=== PATIENT | male | born 1965 | race Hispanic/Latino ===

== ENCOUNTER 2020-12-10 07:43 | Day surgery (SDC) | payer OTHER ==
[2020-12-06 09:50] VITALS: BP 116/75
[2020-12-06 10:10] LABS: BASOPHILS % (AUTO) 0.9 % (0.0-5.0); EOSINOPHILS % (AUTO) 2.8 % (0.0-8.0); HEMATOCRIT 46.9 % (42-54); LYMPHOCYTES % (AUTO) 28.5 % (21.0-51.0); MEAN CORPUSCULAR HEMOGLOBIN 29.8 pg (27.0-33.0); MEAN CORPUSCULAR HGB CONC 34.5 g/dL (32.0-36.0); MEAN CORPUSCULAR VOLUME 86.4 fL (79-99); MONOCYTES % (AUTO) 9.9 % (3.0-13.0); NEUTROPHILS % (AUTO) 57.6 % (40.0-77.0); PLATELET COUNT (AUTO) 178 K/uL (130-400); RED BLOOD CELL COUNT(AUTO) 5.43 MIL/uL (4.50-6.20); RED CELL DISTRIBUTION WIDTH 12.7 % (11.0-15.5); WHITE BLOOD COUNT (AUTO) 6.7 K/uL (4.8-10.8)
[2020-12-06 10:17] LABS: CREATININE 1.2 mg/dL (0.5-1.5); POTASSIUM 4.5 mmol/L (3.5-5.1)
[~2020-12-10] VITALS: Ht 182.9 cm; Wt 93.7 kg
[2020-12-10] VITALS (17 sets, daily range): BP systolic 108–131; BP diastolic 61–82
[~2020-12-10 07:43] MED LIST: ACET1TAB25 PO; ASPI-1005 PO; BUDE10.2 IH; CYAN50009 PO; IBUP-2077 PO; INSLAN SQ; LISI-809 PO; METH-811 PO; SILD100T PO
[2020-12-10] MEDS ORDERED: NACL 0.9% 1000ML 1,000 ML IV ONE (08:24)
[2020-12-10] MEDS ORDERED: CEFAZOLIN SODIUM 1 GM VIAL ONE ×2 (09:13→09:44)
[2020-12-10] MEDS ORDERED: ROCURONIUM 10MG/1ML SYR 10 MG/ML ML ONE (09:27)
[2020-12-10] MEDS ORDERED: LIDOCAINE PF 100MG/5ML (2%) SYRINGE 5ML ONE (09:27)
[2020-12-10] MEDS ORDERED: PROPOFOL 10 MG/ML 20ML VIAL IV ONE (09:27)
[2020-12-10] MEDS ORDERED: SUCCINYLCHOLINE CHLORIDE 20 MG/ML 10 ML VIAL ONE (09:27)
[2020-12-10] MEDS ORDERED: FENTANYL CITRATE PF 50 MCG/1 ML 2ML VIAL ONE (09:28)
[2020-12-10] MEDS ORDERED: ROPIVACAINE 0.5% 5MG/ML 30ML IJ ONE (09:53)
[2020-12-10] MEDS ORDERED: GLYCOPYRROLATE 1 MG/5 ML SYRINGE ONE (11:05)
[2020-12-10] MEDS ORDERED: KETOROLAC 30MG VIAL (30MG/ML) ONE (11:05)
[2020-12-10] MEDS ORDERED: NEOSTIGMINE 5MG/5ML SYR IV ONE (11:05)
[2020-12-10] MEDS ORDERED: IBUP-2077 PO (11:23)
[2020-12-10] MEDS ORDERED: ACET1TAB25 PO (11:23)
[2020-12-10] MEDS ORDERED: CEPH500B PO (11:23)
[2020-12-10] MEDS ORDERED: MEPERIDINE-PF 25 MG/ML SYG ONE (11:49)
== END 2020-12-10 12:50 | disposition home or self-care (01) ==
LOC: DAH 07:43
PROVIDERS: ATTEND Orthopaedic Surgery
DX: S83.512A Sprain of anterior cruciate ligament of left knee, initial encounter (principal); T84.89XA Other specified complication of internal orthopedic prosthetic devices, implants and grafts, initial encounter; Z20.822 Contact with and (suspected) exposure to COVID-19; M94.262 Chondromalacia, left knee; E11.9 Type 2 diabetes mellitus without complications; F17.290 Nicotine dependence, other tobacco product, uncomplicated; G89.29 Other chronic pain; Z79.899 Other long term (current) drug therapy; Z98.1 Arthrodesis status; Z79.82 Long term (current) use of aspirin; Z98.890 Other specified postprocedural states; Z79.4 Long term (current) use of insulin; Z72.89 Other problems related to lifestyle; X58.XXXA Exposure to other specified factors, initial encounter; Y93.89 Activity, other specified; Y92.89 Other specified places as the place of occurrence of the external cause; Y83.8 Other surgical procedures as the cause of abnormal reaction of the patient, or of later complication, without mention of misadventure at the time of the procedure
CPT/HCPCS: 29877; 36415; 64415; 76942; 80048; 82948 ×2; 85025; 87635; A4215; A4221; A4222; A4223; A4649 ×4; A4930; A6223; C1776; C9803; J0330; J0690 ×2; J1885; J2001; J2175; J2704; J2710; J2795; J3010; J3490; J7030 ×3

== ENCOUNTER 2021-03-25 08:00 | Inpatient (IN) | payer OTHER ==
[~2021-03-25] VITALS: Ht 182.9 cm; Wt 93.0 kg
[2021-03-25 09:38] LABS: BASOPHILS % (AUTO) 0.9 % (0.0-5.0); EOSINOPHILS % (AUTO) 3.3 % (0.0-8.0); LYMPHOCYTES % (AUTO) 23.4 % (21.0-51.0); MEAN CORPUSCULAR HEMOGLOBIN 30.2 pg (27.0-33.0); MEAN CORPUSCULAR HGB CONC 35.2 g/dL (32.0-36.0); MEAN CORPUSCULAR VOLUME 85.8 fL (79-99); MONOCYTES % (AUTO) 12.4 % (3.0-13.0); NEUTROPHILS % (AUTO) 59.9 % (40.0-77.0); PLATELET COUNT (AUTO) 175 K/uL (130-400); RED BLOOD CELL COUNT(AUTO) 5.13 MIL/uL (4.50-6.20); RED CELL DISTRIBUTION WIDTH 12.6 % (11.0-15.5); WHITE BLOOD COUNT (AUTO) 6.8 K/uL (4.8-10.8)
[2021-03-25 09:42] LABS: APPEARANCE,URINE Clear (CLEAR); BILIRUBIN,URINE Negative (NEGATIVE); COLOR,URINE Yellow (YELLOW); GLUCOSE, URINE (UA) >=1000 mg/dL (NEGATIVE); KETONES,URINE Negative (NEGATIVE); LEUKOCYTE ESTERASE ,URINE Negative (NEGATIVE); NITRATE,URINE Negative (NEGATIVE); OCCULT BLOOD,URINE Negative (NEGATIVE); PH,URINE 5.5 (5.0-8.0); PROTEIN,URINE Negative (NEGATIVE)
[2021-03-25 09:54] LABS: BACTERIA,URINE Rare /HPF (None Seen); CREATININE 1.3 mg/dL (0.5-1.5); POTASSIUM 4.3 mmol/L (3.5-5.1); RBC,URINE 0-1 /HPF (0-1); SQUAMOUS EPITHELIAL CELL,UR Rare /HPF (0-2); WBC,URINE 0-1 /HPF (0-1)
[2021-03-26 14:34] VITALS: BP 118/76
[2021-03-26] MEDS ORDERED: INSU100C6 SQ (15:06)
[2021-03-26] MEDS ORDERED: INSU100V12 SQ (15:06)
[2021-03-27] VITALS (29 sets, daily range): BP systolic 126–163; BP diastolic 76–93
[2021-03-27] MEDS ORDERED: CEFAZOLIN SODIUM 1 GM VIAL IVP ONE (08:00)
[2021-03-27] MEDS ORDERED: 0.9%NACL 1000ML 1,000 ML IV ONE (09:27)
[2021-03-27] MEDS ORDERED: CEFAZOLIN SODIUM 1 GM VIAL ONE ×2 (09:27→14:42)
[2021-03-27] MEDS ORDERED: INSU100I3 SQ (09:44)
[2021-03-27] MEDS ORDERED: DEXTROSE 50%-WATER 50 ML DISP.SYRIN IV SCH (11:30)
[2021-03-27] MEDS ORDERED: MIDAZOLAM HCL 1 MG/ML 2ML VIAL ONE (14:00)
[2021-03-27] MEDS ORDERED: ROPIVACAINE 0.5% 5MG/ML 30ML IJ ONE (14:06)
[2021-03-27] MEDS ORDERED: KETAMINE 50MG/ML SYRINGE 50 MG/ML DISP.SYRIN IV ONE (14:06)
[2021-03-27] MEDS ORDERED: MAGNESIUM SULFATE 1 GM/2 ML VIAL ONE (14:06)
[2021-03-27] MEDS ORDERED: ONDANSETRON 4MG INJ ONE (14:07)
[2021-03-27] MEDS ORDERED: PROPOFOL 10 MG/ML 20ML VIAL IV ONE (14:07)
[2021-03-27] MEDS ORDERED: ROCURONIUM 10MG/1ML SYR 10 MG/ML ML ONE (14:07)
[2021-03-27] MEDS ORDERED: DEXAMETHASONE SOD PHOSPHATE 10MG/ML 1ML VIAL ONE (14:10)
[2021-03-27] MEDS ORDERED: TRANEXAMIC ACID 1000MG/10ML ONE ×2 (14:42→16:46)
[2021-03-27] MEDS ORDERED: FENTANYL CITRATE PF 50 MCG/1 ML 2ML VIAL ONE (14:53)
[2021-03-27] MEDS ORDERED: TRAMADOL HCL 50 MG TABLET PO PRN (16:30)
[2021-03-27] MEDS ORDERED: LIDOCAINE HCL-MPF 1% 2ML VIAL IV PRN (16:30)
[2021-03-27] MEDS ORDERED: POTASSIUM CHLORIDE 10% ELIXIR 20 MEQ/15 ML UDCUP PO PRN (16:30)
[2021-03-27] MEDS: INSULIN HUMULIN R 100 UNIT/ML 3ML SQ SCH ×2 (16:30→21:00)
[2021-03-27] MEDS ORDERED: POTASSIUM CHLORIDE 20MEQ/100ML 100 ML IV PRN (16:30)
[2021-03-27] MEDS ORDERED: DiphenhydrAMINE HCL 50 MG/ML VIAL IVP PRN (16:30)
[2021-03-27] MEDS ORDERED: ONDANSETRON 4MG INJ IVP PRN (16:30)
[2021-03-27] MEDS ORDERED: FERROUS FUMARATE 324 MG TABLET PO PRN (16:30)
[2021-03-27] MEDS ORDERED: CALCIUM CARB 500MG PO PRN (16:30)
[2021-03-27] MEDS ORDERED: TEMAZEPAM 15 MG CAPSULE PO PRN (16:30)
[2021-03-27] MEDS ORDERED: KCL 20 MEQ ERTAB PO PRN (16:30)
[2021-03-27] MEDS ORDERED: NEOSTIGMINE 5MG/5ML SYR IV ONE (16:58)
[2021-03-27] MEDS ORDERED: GLYCOPYRROLATE 1 MG/5 ML SYRINGE ONE (16:58)
[2021-03-27] MEDS ORDERED: MEPERIDINE-PF 25 MG/ML SYG ONE ×2 (17:37→18:01)
[2021-03-27] MEDS ORDERED: HYDROMORPHONE 1 MG INJ ONE (17:48)
[2021-03-27] MEDS: INSULIN GLARGINE 100 UNITS/ML 10 ML VIAL SQ SCH (21:00)
[2021-03-27] MEDS: ASPIRIN 81 MG EC TAB PO SCH (21:03)
[2021-03-27] MEDS: PREGABALIN 25 MG CAP PO SCH (21:03)
[2021-03-27] MEDS: CELECOXIB 200 MG CAP PO SCH (21:03)
[2021-03-27] MEDS: FAMOTIDINE 20MG TAB PO SCH (21:06)
[2021-03-27] MEDS: ACETAMINOPHEN 500 MG TABLET PO SCH (21:06)
[2021-03-27] MEDS: CEFAZOLIN SODIUM 1 GM VIAL IVP SCH (21:10)
[2021-03-27] MEDS: KETOROLAC 15MG/ML VIAL (15MG/ML) IV PRN (21:11)
[2021-03-27] MEDS: 0.9%NACL 1000ML 1,000 ML IV SCH (21:11)
[2021-03-27] MEDS: OXYCODONE HCL 5 MG TAB PO PRN (23:44)
[2021-03-28] MEDS: ACETAMINOPHEN 500 MG TABLET PO SCH ×3 (00:30→19:48)
[2021-03-28] MEDS: 0.9%NACL 1000ML 1,000 ML IV SCH ×2 (01:43→12:30)
[2021-03-28] MEDS: CEFAZOLIN SODIUM 1 GM VIAL IVP SCH (03:45)
[2021-03-28] MEDS: KETOROLAC 15MG/ML VIAL (15MG/ML) IV PRN ×2 (03:48→17:15)
[2021-03-28 04:00] VITALS: BP 121/76
[2021-03-28 04:51] LABS: HEMATOCRIT 36.4 % (42-54); MEAN CORPUSCULAR HEMOGLOBIN 29.8 pg (27.0-33.0); MEAN CORPUSCULAR HGB CONC 35.2 g/dL (32.0-36.0); MEAN CORPUSCULAR VOLUME 84.8 fL (79-99); RED BLOOD CELL COUNT(AUTO) 4.29 MIL/uL (4.50-6.20); RED CELL DISTRIBUTION WIDTH 12.7 % (11.0-15.5); WHITE BLOOD COUNT (AUTO) 8.7 K/uL (4.8-10.8)
[2021-03-28 05:05] LABS: CREATININE 1.1 mg/dL (0.5-1.5); POTASSIUM 4.9 mmol/L (3.5-5.1)
[2021-03-28] MEDS: INSULIN HUMULIN R 100 UNIT/ML 3ML SQ SCH ×4 (06:58→20:51)
[2021-03-28] MEDS: OXYCODONE HCL 5 MG TAB PO PRN ×4 (07:02→20:52)
[2021-03-28 07:30] VITALS: BP 122/81
[2021-03-28] MEDS: TAMSULOSIN HCL 0.4 MG CAP.ER.24H PO SCH (09:00)
[2021-03-28] MEDS: CELECOXIB 200 MG CAP PO SCH ×2 (09:26→19:47)
[2021-03-28] MEDS: ASPIRIN 81 MG EC TAB PO SCH ×2 (09:27→19:48)
[2021-03-28] MEDS: PREGABALIN 25 MG CAP PO SCH ×2 (09:27→19:47)
[2021-03-28] MEDS: FAMOTIDINE 20MG TAB PO SCH ×2 (09:28→19:48)
[2021-03-28] MEDS: POLYETHYLENE GLYCOL 3350 17 GM POWD.PACK PO SCH (09:31)
[2021-03-28] MEDS: INSULIN GLARGINE 100 UNITS/ML 10 ML VIAL SQ SCH ×2 (09:56→19:49)
[2021-03-28 11:00] VITALS: BP 110/68
[2021-03-28 16:00] VITALS: BP 128/75
[2021-03-28 19:48] VITALS: BP 128/73
[2021-03-29] VITALS (7 sets, daily range): BP systolic 114–146; BP diastolic 61–88
[2021-03-29] MEDS: ACETAMINOPHEN 500 MG TABLET PO SCH ×3 (04:07→19:34)
[2021-03-29] MEDS: OXYCODONE HCL 5 MG TAB PO PRN ×4 (04:08→19:34)
[2021-03-29] MEDS: INSULIN HUMULIN R 100 UNIT/ML 3ML SQ SCH ×4 (05:36→20:21)
[2021-03-29] MEDS: KETOROLAC 15MG/ML VIAL (15MG/ML) IV PRN ×2 (06:30→21:58)
[2021-03-29] MEDS: FAMOTIDINE 20MG TAB PO SCH ×2 (08:10→19:34)
[2021-03-29] MEDS: ASPIRIN 81 MG EC TAB PO SCH ×2 (08:11→19:35)
[2021-03-29] MEDS: CELECOXIB 200 MG CAP PO SCH ×2 (08:11→19:35)
[2021-03-29] MEDS: PREGABALIN 25 MG CAP PO SCH ×2 (08:11→19:35)
[2021-03-29] MEDS: POLYETHYLENE GLYCOL 3350 17 GM POWD.PACK PO SCH (08:11)
[2021-03-29] MEDS: INSULIN GLARGINE 100 UNITS/ML 10 ML VIAL SQ SCH ×2 (08:24→20:25)
[2021-03-29] MEDS: TAMSULOSIN HCL 0.4 MG CAP.ER.24H PO SCH (08:24)
[2021-03-29] MEDS ORDERED: OXYC5 PO (15:22)
[2021-03-29] MEDS ORDERED: AEC81 PO (15:22)
[2021-03-30] MEDS: OXYCODONE HCL 5 MG TAB PO PRN ×2 (00:45→05:27)
[2021-03-30 04:07] VITALS: BP 127/69
[2021-03-30] MEDS: ACETAMINOPHEN 500 MG TABLET PO SCH (05:27)
[2021-03-30] MEDS: INSULIN HUMULIN R 100 UNIT/ML 3ML SQ SCH (06:01)
[2021-03-30 07:32] VITALS: BP 119/71
[2021-03-30] MEDS: ASPIRIN 81 MG EC TAB PO SCH (08:25)
[2021-03-30] MEDS: TAMSULOSIN HCL 0.4 MG CAP.ER.24H PO SCH (08:26)
[2021-03-30] MEDS: CELECOXIB 200 MG CAP PO SCH (08:26)
[2021-03-30] MEDS: INSULIN GLARGINE 100 UNITS/ML 10 ML VIAL SQ SCH (08:26)
[2021-03-30] MEDS: POLYETHYLENE GLYCOL 3350 17 GM POWD.PACK PO SCH (08:26)
[2021-03-30] MEDS: PREGABALIN 25 MG CAP PO SCH (08:26)
[2021-03-30] MEDS: FAMOTIDINE 20MG TAB PO SCH (08:26)
[2021-03-30] MEDS ORDERED: BISACODYL 10 MG SUPP.RECT RC PRN (16:30)
== END 2021-03-30 09:20 | disposition home health service (06) | DRG 470 ==
LOC: EDSTATUS 08:00 → DAHIP 03-27 08:19 → 3CH 03-27 19:51
PROVIDERS: ADMIT Orthopaedic Surgery; ATTEND Orthopaedic Surgery
PROC: 3E0T33Z Introduction of Anti-inflammatory into Peripheral Nerves and Plexi, Percutaneous Approach (ICD-10-PCS; 2021-03-27)
PROC: 0SRD0J9 Replacement of Left Knee Joint with Synthetic Substitute, Cemented, Open Approach (ICD-10-PCS; principal; 2021-03-27 14:59)
PROC: 3E0T3BZ Introduction of Anesthetic Agent into Peripheral Nerves and Plexi, Percutaneous Approach (ICD-10-PCS; 2021-03-27 14:59)
DX: M17.32 Unilateral post-traumatic osteoarthritis, left knee (principal); Z20.822 Contact with and (suspected) exposure to COVID-19; G89.29 Other chronic pain; E11.9 Type 2 diabetes mellitus without complications; D64.9 Anemia, unspecified; Z87.81 Personal history of (healed) traumatic fracture; Z72.0 Tobacco use
CPT/HCPCS: 36415; 80048; 81001; 82947; 82948; 85025; 85027; 87088; 87635; 87641; 97039; G0378; J0690; J1100; J1170; J1815; J1885; J2175; J2250; J2405; J2704; J2710; J2795; J3010; J3475; J3490; J7030

== ENCOUNTER → 2022-12-31 | Outpatient (CLI) | payer OTHER ==
[~2022-12-31] MED LIST changes: -ACET1TAB25 PO; +AEC81 PO; -ASPI-1005 PO; -BUDE10.2 IH; -CYAN50009 PO; -IBUP-2077 PO; -INSLAN SQ; +INSU100I3 SQ; +INSU100V12 SQ; -LISI-809 PO; -METH-811 PO; +OXYC5 PO; -SILD100T PO
== END | disposition home or self-care (01) ==
LOC: RAH 12:19
PROVIDERS: ATTEND Student in an Organized Health Care Education/Training Program
DX: M25.562 Pain in left knee (principal); T84.84XA Pain due to internal orthopedic prosthetic devices, implants and grafts, initial encounter; M79.89 Other specified soft tissue disorders; M25.462 Effusion, left knee; Y92.89 Other specified places as the place of occurrence of the external cause
CPT/HCPCS: 73700